=== PATIENT | male | born 1940 | race Caucasian/White ===

== ENCOUNTER 2016-10-31 17:39 | Emergency (ER) | payer OTHER ==
[2016-10-31 18:30] LABS: BASOPHIL 0.1 % (0-2); EOSINOPHIL 0.1 % (0-7); HCT 51.5 % (42.0-52.0); HGB 17.3 g/dl (13.2-18.0); LYMPHOCYTE 6.7 % (15-48); MCH 32.4 pg (25.0-31.0); MCHC 33.6 g/dL (32.0-36.0); MCV 96.4 fL (78.0-100.0); MONOCYTE 3.1 % (0-12); MPV 10.3 fL (6.0-9.5); PLT 411 K/uL (150-400); RBC 5.34 M/uL (4.70-6.00); RDW 14.7 % (11.5-14.0); WBC 13.4 K/uL (4.0-10.5)
[2016-10-31 18:41] LABS: ALBUMIN 5.2 g/dL (3.4-4.8); BILIRUBIN - TOTAL 0.6 mg/dL (0.1-1.0); CREATININE 2.1 mg/dL (0.7-1.2); GLOBULIN (CALCULATION) 3.8 g/dL (2.2-4.2); POTASSIUM 4.1 mmol/L (3.5-5.1)
[2016-10-31 20:03] LABS: BILIRUBIN 1+ mg/dL (NEGATIVE); BLOOD NEGATIVE Ery/uL (NEGATIVE); CLARITY CLEAR (CLEAR); COLOR YELLOW (YELLOW); GLUCOSE (U) NORMAL (NORMAL); KETONE (U) 1+ (SMALL) mg/dL (NEGATIVE); LEUKOCYTES NEGATIVE Leu/uL (NEGATIVE); NITRITE NEGATIVE (NEGATIVE); PROTEIN 2+ mg/dL (NEGATIVE); pH 7.5 (5.0-9.0)
[2016-10-31 20:06] LABS: SQUAMOUS EPITHELIAL CELLS RARE; URINARY RBC RARE
== END 2016-11-01 04:30 | disposition other institution (70) ==
LOC: FER 17:39
PROVIDERS: Emergency Medicine
DX: K56.60 Unspecified intestinal obstruction (principal); I10 Essential (primary) hypertension; Z98.890 Other specified postprocedural states; Z79.82 Long term (current) use of aspirin; Z79.899 Other long term (current) drug therapy
CPT/HCPCS: 36415; 74022; 80053; 81001; 82271; 83690; 85025; 93005; C9113; J2060; J2405